=== PATIENT | male | born 2000 | race Caucasian/White ===

== ENCOUNTER 2024-01-17 14:54 | Emergency (ER) | payer BC, OTHER ==
[~2024-01-17] VITALS: Ht 185.4 cm; Wt 83.0 kg
[2024-01-17 15:18] VITALS: BP 120/93; PULSE 120; RESP 16; O2SAT 97
[2024-01-17 15:59] LABS: Basophils # (auto) 0.1 10 ^3/uL (0-0.2); Basophils % (auto) 1.1 % (0.0-2.0); Eosinophils # (auto) 0.1 10 ^3/uL (0-0.8); Eosinophils % (auto) 1.5 % (0.0-7.0); Hematocrit 48.9 % (41.0-53.0); Hemoglobin 16.5 g/dL (13.5-17.5); Lymphocytes # (auto) 1.6 10 ^3/uL (0.4-5.4); Lymphocytes % (auto) 19.2 % (10.0-50.0); Mean Corpuscular Hemoglobin 31.8 pg (28.0-32.0); Mean Corpuscular Hgb Conc. 33.8 g/dL (32.0-36.0); Mean Corpuscular Volume 94.3 fL (80.0-100.0); Monocytes # (auto) 0.8 10 ^3/uL (0-1.3); Monocytes % (auto) 9.5 % (0.0-12.0); Neutrophils # (auto) 5.8 10 ^3/uL (1.6-8.6); Neutrophils % (auto) 68.7 % (37.0-80.0); Nucleated Red Blood Cells % 0.1 %; Platelet Count (auto) 281 10^3/uL (140-450); Red Blood Cells 5.19 10^6/uL (4.5-5.90); Red Cell Distribution Width 12.2 % (11.8-14.3); White Blood Cell 8.5 10^3/uL (4.4-10.8)
[2024-01-17 16:17] LABS: Alanine Aminotransferase 18 U/L (7-40); Albumin 5.4 g/dL (3.2-4.8); Alkaline Phosphatase 99 U/L (46-116); Anion Gap 5 (5-15); Aspartate Aminotransferase 12 U/L (13-40); BUN/Creatinine Ratio 6.6 (10.0-20.0); Bilirubin, Total 0.8 mg/dL (0.2-1.0); Blood Urea Nitrogen 7 mg/dL (9-23); Calcium 10.8 mg/dL (8.7-10.4); Carbon Dioxide 29 mmol/L (20-30); Chloride 106 mmol/L (98-107); Glucose 107 mg/dL (74-106); Potassium 3.8 mmol/L (3.5-5.1); Sodium 140 mmol/L (136-145); Total Protein 8.3 g/dL (5.7-8.2)
[2024-01-17 16:37] LABS: Lipase 37 U/L (12-53)
[2024-01-17] MEDS ORDERED: ALBE200T9 PO (19:37)
== END 2024-01-17 20:00 | disposition home or self-care (01) ==
LOC: ER 14:54
DX: R10.9 Unspecified abdominal pain (principal); F12.90 Cannabis use, unspecified, uncomplicated
CPT/HCPCS: 36415; 74176; 80053; 83690; 85025; 85048; 87177